=== PATIENT | male | born 1965 | race Caucasian/White ===

== ENCOUNTER 2018-07-21 19:36 | Emergency (ER) | payer SELFPAY ==
[2018-07-21 19:38] VITALS: BP 146/88; PULSE 85; RESP 18; TEMP 38.6; O2SAT 99
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
== END 2018-07-21 20:26 | disposition home or self-care (01) ==
LOC: ER 20:32
PROVIDERS: Emergency Provider Emergency Medicine
DX: F10.129 Alcohol abuse with intoxication, unspecified (principal); R47.81 Slurred speech; V48.5XXA Car driver injured in noncollision transport accident in traffic accident, initial encounter
CPT/HCPCS: 99285; 99284